=== PATIENT | male | born 1965 | race Caucasian/White ===

== ENCOUNTER 2018-06-06 09:27 | Emergency (ER) | payer OTHER, BC ==
[2018-06-06] MEDS ORDERED: DIPH/PERTUSS(ACELL)/TETANUS VAC/PF 0.5 ML SYR (>=10YO) IM ONE (10:02)
--- NOTE | 2018-06-06 10:42 | ER Document Report ---
HPI - HPI Patient complains to provider of: Head laceration Pain Level: 2 Context: Patient is a 53-year-old male presenting to the emergency department complaining of hitting his head on a box. States that he thinks he scratched the top of his head and was unable to control the bleeding which is why he presents to the emergency room. Patient denies any use of blood thinners, loss of consciousness or vomiting. Past medical history: Diabetes Medications: Lantus, metformin Allergies: None Patient admits to occasional cigar smoking, occasional EtOH use, denies illicit drug use. Patient is unsure when his last tetanus was - DERM Skin Color: Normal, [place] Past Medical History - General Information source: Patient - Social History Smoking Status: Current Some Day Smoker Frequency of alcohol use: Occasional Lives with: Family Family History: Reviewed & Not Pertinent Patient has suicidal ideation: No Patient has homicidal ideation: No - Past Medical History Cardiac Medical History: Reports: Hx Hypercholesterolemia Endocrine Medical History: Reports: Hx Diabetes Mellitus Type 2 Renal/ Medical History: Denies: Hx Peritoneal Dialysis Past Surgical History: Reports: Hx Appendectomy - 1988, Hx Orthopedic Surgery - Right knee lateral release 1986 Vertical Provider Document - CONSTITUTIONAL Agree With Documented VS: Yes Notes: GENERAL: Alert, interacts well. No acute distress. HEAD: Normocephalic, atraumatic. EYES: Pupils equal, round, and reactive to light. Extraocular movements intact. ENT: Oral mucosa moist, tongue midline. TMs intact no hemotympanum. NECK: Full range of motion. Supple. Trachea midline. LUNGS: Clear to auscultation bilaterally, no wheezes, rales, or rhonchi. No respiratory distress. HEART: Regular rate and rhythm. No murmur ABDOMEN: Soft, non-tender. Non-distended. Bowel sounds present in all 4 quadrants. EXTREMITIES: Moves all 4 extremities spontaneously. No edema, normal radial and dorsalis pedis pulses bilaterally. No cyanosis. BACK: no cervical, thoracic, lumbar midline tenderness. No saddle anesthesia, normal distal neurovascular exam. NEUROLOGICAL: Alert and oriented x3. Normal speech. cranial nerves II through XII grossly intact PSYCH: Normal affect, normal mood. SKIN: Warm, dry, normal turgor. two-3 cm linear very superficial lacerations noted to the crown of the patient's head. Non-gaping - INFECTION CONTROL TRAVEL OUTSIDE OF THE [place] IN LAST 30 DAYS: No Course - Re-evaluation Re-evalutation: 06/06/18 10:41 2 lacerations on the top of the head had minimal bleeding upon my exam. They were non-gaping and the skin was not able to be pulled apart. Very superficial wounds. Cleaned with Betadine, normal saline and Dermabonded them. Patient tolerated procedure well. Tetanus updated in emergency room. Return precautions discussed. - Vital Signs Vital signs: Temp Pulse Resp BP Pulse Ox 98.1 F 75 18 150/83 H 98 06/06/18 09:31 06/06/18 09:31 06/06/18 09:31 06/06/18 09:31 06/06/18 09:31 Procedures - Laceration/Wound Repair Head Wound length (cm): 3 Wound's Depth, Shape: Superficial Laceration pre-procedure: Betadine prep applied Wound explored: Clean Wound Debrided: Minimal Wound Repaired With: Dermabond Post-procedure NV exam normal: Yes Complications: No Scalp Wound length (cm): 3 Wound's Depth, Shape: Superficial, Linear Laceration pre-procedure: Betadine prep applied Wound explored: Clean Wound Debrided: Minimal Wound Repaired With: Dermabond Post-procedure NV exam normal: Yes Complications: No Discharge - Discharge Clinical Impression: Laceration Condition: Stable Disposition: HOME, SELF-CARE Instructions: Tetanus Immunization Given ([facility]), Laceration Care ([facility]) Additional Instructions: Dermabond (Skin Adhesive Closure) Skin adhesive (such as Dermabond) is a quick-drying glue that remains slightly flexible while it holds wound edges together. It can substitute for stitches on some cuts. The film will usually fall off the skin after 5 to 10 days. Keep the wound area clean and dry. Do not soak or scrub the wound. Don't swim. You can shower briefly after 24 hours. Gently blot the area dry with a soft towel. Don't apply ointments. If there is a dressing, change it immediately if it gets wet. Do not place tape directly over the adhesive film, because the tape may pull the film off your skin as you remove it. Don't bump the wound area. If there's risk of injury, keep the area well- padded. Avoid stretching of the skin. Do not scratch or pick at the adhesive film. Avoid prolonged exposure to sunlight or tanning lamps. Return if there is increasing pain, swelling, redness, or drainage, or if the wound edges seem to open or separate. Referrals: JUWAN MELGAR MD [Primary Care Provider] - Follow up as needed
[2018-06-06 11:01] VITALS: BP 141/80
== END 2018-06-06 10:58 | disposition home or self-care (01) ==
LOC: ER 09:27
DX: S01.01XA Laceration without foreign body of scalp, initial encounter (principal); W22.8XXA Striking against or struck by other objects, initial encounter; Y99.0 Civilian activity done for income or pay; F17.200 Nicotine dependence, unspecified, uncomplicated; E11.9 Type 2 diabetes mellitus without complications; Z79.84 Long term (current) use of oral hypoglycemic drugs; Z79.4 Long term (current) use of insulin; Z23 Encounter for immunization
CPT/HCPCS: 90471; 90715; 99282

== ENCOUNTER 2019-01-06 07:21 | Emergency (ER) | payer OTHER, BC ==
--- NOTE | 2019-01-06 07:26 | ER Document Report ---
ED General - General Stated Complaint: BACK PAIN Time Seen by Provider: 01/06/19 07:26 Primary Care Provider: [facility] [Provider Group] - Follow up as needed Notes: Patient is a 53-year-old male with history of chronic low back pain that presents to the emergency department for chief complaint of acute on chronic low back pain. Patient reports that last night he was putting away groceries, leaned over, and when he stood back up he felt a pop sensation, he went to sit down, and then when he stood back up he felt severe pain in his lower back, with some radiation down towards both legs, but denies any numbness, weakness or tingling, denies saddle anesthesia or paresthesia. And denies any bowel or bladder incontinence, or urinary retention. He states his had pain like this before, but it has been a while, occasionally gets flareups of his low back, he states [facility]. He currently rates his pain as a 6 out of 10, he was given 200 mcg of fentanyl by EMS, which has taken the edge off according to the patient and has brought the pain down. He states the pain was so severe, that he did not want to bear weight this morning, but denies having any weakness in his lower extremities. Past Medical History: Chronic low back pain, diabetes mellitus, hypertension Past Surgical History: Knee surgery Social History: Admits to rare alcohol use, denies tobacco or illicit drug use, [facility]. Family History: Reviewed and noncontributory for presenting illness Allergies: Reviewed, see documented allergy list. REVIEW OF SYSTEMS: Other than noted above, the 12 point review of systems was reviewed with the patient and were negative, all pertinent findings are included in the HPI. PHYSICAL EXAMINATION: Vital signs reviewed, nursing noted reviewed. GENERAL: Patient appears uncomfortable on exam, but no acute distress. HEAD: Atraumatic, normocephalic. EYES: Eyes appear normal, extraocular movements intact, sclera anicteric, conjunctiva are normal. ENT: nares patent, oropharynx clear without exudates. Moist mucous membranes. NECK: Normal range of motion, supple without lymphadenopathy LUNGS: Breath sounds clear to auscultation bilaterally and equal. No wheezes rales or rhonchi. HEART: Regular rate and rhythm without murmurs ABDOMEN: Soft, nontender, normoactive bowel sounds. No rebound, guarding, or rigidity. No masses appreciated. EXTREMITIES: Nontender, good range of motion, no pitting or edema. Back: Positive straight leg raising on the right, negative on the left, there is no significant tenderness to palpation to the paraspinal or midline of the lumbar spine, or the thoracic spine. NEUROLOGICAL: No focal neurological deficits. Moves all extremities spontaneously Motor and sensory grossly intact on exam. Patient has +5/5 strength with dorsiflexion, plantar flexion and extension of the hallucis longus tendon, reflexes are +2/4 in the patellar and Achilles tendons bilaterally and equal. Sensation is intact distally. PSYCH: Normal mood, normal affect. SKIN: Warm, Dry, normal turgor, no rashes or lesions noted on exposed skin TRAVEL OUTSIDE OF THE [place] IN LAST 30 DAYS: No - Related Data Allergies/Adverse Reactions: No Known Allergies Allergy (Verified 06/06/18 09:28) Past Medical History - Social History Smoking Status: Former Smoker Family History: Reviewed & Not Pertinent - Past Medical History Cardiac Medical History: Reports: Hx Hypercholesterolemia Endocrine Medical History: Reports: Hx Diabetes Mellitus Type 2 Renal/ Medical History: Denies: Hx Peritoneal Dialysis Past Surgical History: Reports: Hx Appendectomy - 1988, Hx Orthopedic Surgery - Right knee lateral release 1986 Physical Exam - Vital signs Vitals: Temp Pulse Resp BP Pulse Ox 98.7 F 83 18 135/83 H 96 01/06/19 07:32 01/06/19 07:32 01/06/19 07:32 01/06/19 07:32 01/06/19 07:32 Course - Re-evaluation Re-evalutation: Patient seen and examined vital signs reviewed. imaging ordered as appropriate for the patient's presenting symptoms and complaint, with consideration of any critical or life threatening conditions that may be associated with their obtained history and exam as noted above. Patient was treated with IV Robaxin, and Toradol, also given a shot of Depo- Medrol, 40 mg. Results were reviewed when available and demonstrated right L3-L4 disc herniation, compressing the nerve root, which is consistent with the patient's symptoms The patient was re-evaluated and was still having some pain, he was given 1 mg of IV Dilaudid. Evaluation was most consistent with lumbar radiculopathy, L3-L4 disc herniation, recommend following up with neurosurgery, is given a reference to 2 different neurosurgeons, given prescriptions for Percocet, Robaxin, and naproxen, take for pain, given strict return precautions. Results were discussed with the patient at this point, after careful consideration I feel that that patient can be discharged from the emergency department, the patient was educated treatments and reasons to return to the emergency department based on their presumed diagnosis as noted above, they were advised to followup with a primary care physician in 2-3 days. Patient was agreeable to plan of care. *Note is created using voice recognition software and may contain spelling, syntax or grammatical errors. Lumbar Spine MRI 01/06/19 07:36 IMPRESSION: Tiny acute right paracentral disc herniation at the L3-4 level, flattening the thecal sac at the takeoff of the right proximal L4 nerve root in the lateral recess - Vital Signs Vital signs: Temp Pulse Resp BP Pulse Ox 98.7 F 83 18 135/83 H 96 01/06/19 07:32 01/06/19 07:32 01/06/19 07:32 01/06/19 07:32 01/06/19 07:32 Discharge - Discharge Clinical Impression: Herniated nucleus pulposus, L3-4 right, Lumbar radiculopathy, acute Condition: Stable Disposition: HOME, SELF-CARE Additional Instructions: Please take all medications as prescribed, please follow-up with one of the following neurosurgeons listed below, call for an appointment tomorrow, if you were having severe pain, despite taking the medications, develop weakness in your leg, do not hesitate to return to the emergency department sooner. Josr Castañeda, DO Neurological Surgery [facility] [address] [place] [id number] Saeed Degroot [address] [place] [id number] Prescriptions: Methocarbamol [Robaxin 750 mg Tablet] 750 mg PO Q6H PRN #30 tablet PRN Reason: back pain Naproxen [Naprosyn] 500 mg PO BID PRN #30 tablet PRN Reason: back pain Oxycodone HCl/Acetaminophen [Percocet 5-325 mg Tablet] 1 tab PO Q8H PRN #15 tab PRN Reason: general pain Referrals: [facility] [Provider Group] - Follow up as needed
[2019-01-06] MEDS ORDERED: METHOCARBAMOL INJ/PF 1000 MG/10 ML SDV IV ONE (07:36)
[2019-01-06] MEDS ORDERED: METHYLPREDNISOLONE ACETATE INJ 40 MG/1 ML ML IM ONE (07:36)
[2019-01-06] MEDS ORDERED: KETOROLAC TROMETHAMINE INJ/PF 30 MG/1 ML SDV IV ONE (07:36)
[2019-01-06] MEDS ORDERED: HYDROMORPHONE HCL INJ/PF 2 MG/ML AMPULE IV ONE (09:40)
--- NOTE | 2019-01-06 09:50 | RADIOLOGY REPORT (SQ) ---
EXAM DESCRIPTION: MRI LUMBAR SPINE WITHOUT COMPLETED DATE/TIME: 01/06/2019 9:05 am REASON FOR STUDY: acute low back pain, right LE paresthesia right leg numbness radicular distributio n COMPARISON: CT abdomen pelvis 12/08/2009 TECHNIQUE: Sagittal and Axial imaging includes T1, T2, STIR and gradient echo sequences. Coronal T2/ HASTE imaging. LIMITATIONS: None. FINDINGS: VISUALIZED UPPER ABDOMEN: Limited evaluation. No acute or suspicious findings suggested. SEGMENTATION: No transitional anatomy. The lowest well-developed disc space is labeled L5-S1. ALIGNMENT: Anatomic. VERTEBRAE: Intact. BONE MARROW: Normal. No marrow replacement or reactive changes. DISC SIGNAL: Decreased T2 weighted intervertebral disc signal with disc space loss of height at L2-3, L3-4, and L4-5. POSTERIOR ELEMENTS: Generally intact. No pars defect evident. HARDWARE: None in the spine. CORD AND CONUS: Normal in size and signal intensity. Conus at the T12-L1 level. SOFT TISSUES: No aortic aneurysm seen. No bulky retroperitoneal adenopathy or mass. No paraspinal mas s or fluid. T11-12: At the upper edge of the field of view, mild bilateral facet hypertrophy. No central or for aminal stenosis T12-L1: Minimal bilateral facet hypertrophy. No central or foraminal stenosis. L1-L2: Mild bilateral facet hypertrophy. No significant spinal stenosis or exit foraminal stenosis. L2-L3: Mild bilateral facet hypertrophy. Minimal posterior disc bulging. No significant spinal sten osis or exit foraminal stenosis. L3-L4: Tiny acute disc herniation right paracentral location about 5 mm in size. This flattens the t hecal sac at the takeoff of the right proximal L4 nerve root in the lateral recess, best shown on axi al T2 series 6 image 15/33, and sagittal stir series 4 image 8/16. Elsewhere at L3-4, there is mild diffuse posterior disc bulging and moderate bilateral facet and liga ment hypertrophy without significant central or foraminal encroachment. L4-L5: Mild diffuse posterior disc bulging is present with a small central annular tear and disc prot rusion. Mild bilateral facet and ligament hypertrophy. No central stenosis. Mild bilateral inferio r foraminal narrowing without exiting L4 nerve root impingement. L5-S1: Mild bilateral facet hypertrophy. No significant spinal stenosis or exit foraminal stenosis. SACRUM: Visualized upper sacrum intact. OTHER: Report called to Dr. Saravia, 0930 hours 01/06/2019. IMPRESSION: Tiny acute right paracentral disc herniation at the L3-4 level, flattening the thecal sa c at the takeoff of the right proximal L4 nerve root in the lateral recess TECHNICAL DOCUMENTATION: JOB ID: [id number] [employer] [place] - 2- All Rights Reserved Reading location - IP/workstation name: [email or web address]
[2019-01-06 11:01] VITALS: BP 133/78
== END 2019-01-06 11:01 | disposition home or self-care (01) ==
LOC: ER 07:21
DX: M51.16 Intervertebral disc disorders with radiculopathy, lumbar region (principal); E11.9 Type 2 diabetes mellitus without complications; I10 Essential (primary) hypertension; Z87.891 Personal history of nicotine dependence
CPT/HCPCS: 99284; 96372; 96375; 96365; 72148; J2800; J1030; J1885; J1170; 96374

== ENCOUNTER → 2020-07-29 | Outpatient (CLI) | payer BC, OTHER ==
[~2020-07-29] MED LIST: COVID-19 VACCINE (PFIZER)/PF 30 MCG/0.3 ML VIAL IM ONE; EPINEPHRINE INJ/PF 1 MG/1 ML AMPULE IM PRN
== END ==
LOC: EMPHEALTH 13:05
PROVIDERS: ATTEND Internal Medicine
DX: Z23 Encounter for immunization (principal)
CPT/HCPCS: 91300

== ENCOUNTER → 2020-08-19 | Outpatient (CLI) | payer BC, OTHER | LOC: EMPHEALTH 13:00 | PROVIDERS: ATTEND Internal Medicine | DX: Z23 Encounter for immunization (principal) | CPT/HCPCS: 91300 ==